=== PATIENT | male | born 1955 | race Caucasian/White ===

== ENCOUNTER → 2016-11-27 | Outpatient (CLI) | payer OTHER ==
--- NOTE | 2016-11-27 13:30 | RADIOLOGY REPORT PS360 ---
HIP RT 2-3V W/PELVIS IF PERFOR HISTORY: Low back pain with right-sided sciatica, right hip pain LBP WITH RIGHT SCIATICA, RT HIP PAIN ORDERING PHYSICIAN: Daria Paige APRN PATIENT AGE: 61 years COMPARISON: None FINDINGS: There are minimal osteoarthritic changes of the right hip with slight decrease in the joint space medially and minimal osteophyte formation of the acetabulum inferiorly. No fracture or dislocation. No lytic or blastic change. There is mild sclerosis of the right aspect of the symphysis pubis etiology indeterminate. IMPRESSION: Minimal osteoarthritis of the right hip
--- NOTE | 2016-11-27 13:30 | RADIOLOGY REPORT PS360 ---
EXAM: LUMBAR SPINE 5 VIEWS HISTORY: LBP WITH RIGHT SCIATICA, RT HIP PAIN ORDERING PHYSICIAN: Daria Paige APRN PATIENT AGE: 61 years COMPARISON: None FINDINGS: Normal alignment. No fracture or dislocation. No lytic or blastic change. There is minimal dextroscoliosis of the upper lumbar spine. There is slight decrease in the disc space from L3 to S1 with small endplate osteophytes consistent with mild degenerative disc disease. Mild facet sclerotic changes involve's L5-S1. There is slight decrease in height anteriorly of T12 and L1 which may be developmental. IMPRESSION: Mild lumbar spondylosis with degenerative disc disease and facet arthritic change
== END ==
LOC: RAD 10:57
DX: M25.551 Pain in right hip (principal); M54.41 Lumbago with sciatica, right side